=== PATIENT | male | born 1965 | race Caucasian/White ===

== ENCOUNTER → 2019-09-27 | Outpatient (CLI) | payer OTHER ==
--- NOTE | 2019-09-28 09:43 | US ---
EXAMINATION TYPE: US scrotum with doppler. Grayscale and color Doppler Duplex imaging performed of t lizandro scrotum. DATE OF EXAM: 09/27/2019 COMPARISON: NONE CLINICAL HISTORY: N50.812 Left testicular pain. Left testicle pain started 6 weeks ago doing heavy li fting, no swelling EXAM MEASUREMENTS: TESTICLES: Right Testicle: 5.2 x 3.0 x 2.3 cm Left Testicle: 5.2 x 2.9 x 2.4 cm EPIDIDYMIS HEAD: Right Epididymis: 1.3 cm Left Epididymis: 1.2 cm Doppler performed to assess for testicular vascularity; good bilateral color flow and waveforms are s een. There is no evidence of testicular torsion. Presence of hydroceles: bilateral Presence of varicoceles: prominent vessels seen on the left lateral portion IMPRESSION: 1. Bilateral hydroceles. There is small left varicocele.
== END | disposition home or self-care (01) ==
LOC: RADUSMAIN 15:57
PROVIDERS: ATTEND Internal Medicine
DX: N43.3 Hydrocele, unspecified (principal); I86.1 Scrotal varices
CPT/HCPCS: 76870; 93975

== ENCOUNTER → 2024-04-27 | Outpatient (CLI) | payer OTHER ==
--- NOTE | 2024-04-27 16:10 | US ---
EXAMINATION TYPE: US scrotum with doppler. Grayscale and color Doppler Duplex imaging performed of t he scrotum. DATE OF EXAM: 04/27/2024 COMPARISON: US 2019 CLINICAL INDICATION: Male, 58 years old with history of N50.3 CYST OF EPIDIDYMIS; Left epididymal cys t per order, left intermittent pain. EXAM MEASUREMENTS: TESTICLES: Right Testicle: 5.5 x 3.3 x 2.3 cm Left Testicle: 5.2 x 3.1 x 2.2 cm EPIDIDYMIS HEAD: Right Epididymis: 0.5 x 0.8 x 1.4 cm Left Epididymis: 0.6 x 1.2 x 1.3 cm Isoechoic area seen near the epididymal head: 0.5 x 0.3 x 0.3 cm. Doppler performed to assess for testicular vascularity; bilateral color flow and waveforms are seen. Blood flow appears symmetrical to the testicles Presence of hydroceles: Right: 3.8 x 5.0 x 1.1 cm. Left: 3.7 x 2.6 x 0.5 cm. Presence of varicoceles: No prominent vessels seen. IMPRESSION: 1. Right-sided hydrocele
== END | disposition home or self-care (01) ==
LOC: RADUSWWP 14:21
PROVIDERS: ATTEND Urology
DX: N43.3 Hydrocele, unspecified (principal); N50.3 Cyst of epididymis
CPT/HCPCS: 76870; 93975